=== PATIENT | male | born 2000 | race Caucasian/White ===

== ENCOUNTER 2019-04-04 17:14 | Emergency (ER) | payer OTHER ==
[~2019-04-04] VITALS: Ht 177.8 cm; Wt 81.6 kg
[2019-04-04 17:15] VITALS: BP 136/66
== END 2019-04-04 18:10 ==
LOC: MED 17:14
DX: F10.129 Alcohol abuse with intoxication, unspecified (principal); F41.9 Anxiety disorder, unspecified; F32.9 Major depressive disorder, single episode, unspecified; V49.49XA Driver injured in collision with other motor vehicles in traffic accident, initial encounter; Y93.89 Activity, other specified; Y92.488 Other paved roadways as the place of occurrence of the external cause; Y99.8 Other external cause status
CPT/HCPCS: 99283